=== PATIENT | male | born 1955 | race Two or more races ===

== ENCOUNTER 2017-11-23 08:38 | Day surgery (SDC) | payer OTHER ==
[~2017-11-23 08:38] MED LIST: CEFAZOLIN 1 GM INJ; CEFAZOLIN 2 GM/50 ML (PMX) 50 ML IVPB; NEOSTIGMINE 3 MG/3 ML SYRINGE
[2017-11-23] MEDS ORDERED: NEOSTIGMINE 3 MG/3 ML SYRINGE (08:46)
[2017-11-23] MEDS ORDERED: ROCURONIUM 50 MG INJ (08:46)
[2017-11-23] MEDS ORDERED: PROPOFOL 20 ML (08:46)
[2017-11-23] MEDS ORDERED: MIDAZOLAM 1 MG/ML 2 ML INJ (08:46)
[2017-11-23] MEDS ORDERED: LIDOCAINE 2% (SDV) 5 ML INJ (08:46)
[2017-11-23] MEDS ORDERED: GLYCOPYRROLATE 0.4 MG INJ (08:46)
[2017-11-23] MEDS ORDERED: FENTAnyl 50 MCG/ML VIAL (08:47)
[2017-11-23] MEDS ORDERED: DEXAMETHASONE 4 MG/ML 1 ML INJ (08:47)
[2017-11-23] MEDS ORDERED: ONDANSETRON 4 MG INJ (08:47)
[2017-11-23] MEDS ORDERED: ROPIVACAINE 0.5 % 30 ML VIAL (08:51)
[2017-11-23] MEDS ORDERED: FLUMAZENIL 0.5 MG INJ (09:25)
[2017-11-23] MEDS ORDERED: OXYCODONE/ACETAMINOPHEN (5/325) TAB PO (10:30)
[2017-11-23] MEDS ORDERED: hydrALAzine 20 MG INJ IV (10:30)
[2017-11-23] MEDS ORDERED: MEPERIDINE 25 MG INJ IV (10:30)
[2017-11-23] MEDS ORDERED: MIDAZOLAM 1 MG/ML 2 ML INJ IV (10:30)
[2017-11-23] MEDS ORDERED: HYDROmorphONE 1 MG/5 ML IV SYRINGE IV ×3 (10:30)
[2017-11-23] MEDS ORDERED: LABETALOL HCL 20MG INJ IV (10:30)
[2017-11-23] MEDS ORDERED: ATROPINE 1 MG/10 ML SYRINGE IV (10:30)
[2017-11-23] MEDS ORDERED: EPHEDrine SULFATE 50 MG/5 ML SYG IV (10:30)
[2017-11-23] MEDS ORDERED: DIPHENHYDRAMINE 50 MG INJ IV (10:30)
[2017-11-23] MEDS ORDERED: FENTAnyl 50 MCG/ML VIAL IV (10:30)
[2017-11-23] MEDS ORDERED: morphine (1 MG/ML) 10ML SYRINGE IV ×3 (10:30)
[2017-11-23] MEDS ORDERED: ONDANSETRON 4 MG INJ IV (10:30)
[2017-11-23] MEDS ORDERED: LIDOCAINE 4% CR (11:09)
[2017-11-23] MEDS: BUPIVACAINE 0.5%/EPI (SDV) 30 ML INJ (11:50)
[2017-11-23] MEDS ORDERED: SUCCINYLCHOLINE CHLORIDE 100 MG/5 ML SYG IV (11:52)
[2017-11-23] MEDS: FENTAnyl 50 MCG/ML VIAL IV ×2 (12:45→12:51)
[2017-11-23] MEDS: OXYCODONE/ACETAMINOPHEN (5/325) TAB PO (14:23)
== END 2017-11-23 14:43 | disposition home or self-care (01) ==
LOC: SDS 08:38
DX: M93.272 Osteochondritis dissecans, left ankle and joints of left foot (principal); M19.072 Primary osteoarthritis, left ankle and foot; I10 Essential (primary) hypertension
CPT/HCPCS: 29892